=== PATIENT | male | born 1995 | race Two or more races ===

== ENCOUNTER 2016-12-31 08:41 | Emergency (ER) | payer OTHER, BC ==
[2016-12-31 09:16] VITALS: BP 126/86
--- NOTE | 2016-12-31 09:46 | EDM.PDOC ---
ED HPI GENERAL MEDICAL PROBLEM - General Chief Complaint: ENT Problem Stated Complaint: RT EYE, Time Seen by Provider: 12/31/16 09:46 Source of Information: Reports: Patient, RN Notes Reviewed History Limitations: Reports: No Limitations - History of Present Illness INITIAL COMMENTS - FREE TEXT/NARRATIVE: Active from [place] complaining of right eye/irritation injury sustained yesterday while working. Patient is unsure whether dirt, sand or some debris was blown into the eye at some point during the day. The irritation increased until the end of the day he noticed that the right eye looked red. This morning he awoke with yellow matting of the right eye and continued irritation. Denies any visual changes. Denies any other injury or symptoms. Tetanus is up-to-date. Onset Date: 12/30/16 Quality: Reports: Ache Severity: Moderate Improves with: Reports: None Worsens with: Reports: None Associated Symptoms: Reports: No Other Symptoms - Related Data Allergies Allergy/AdvReac Type Severity Reaction Status Date / Time ceftriaxone [From Rocephin] Allergy Hives Verified 12/31/16 09:19 Home Meds: Home Meds . [No Known Home Meds] 05/01/14 [History] Past Medical History - Past Surgical History HEENT Surgical History: Reports: Tonsillectomy Social & Family History - Family History Family Medical History: Noncontributory - Tobacco Use Smoking Status *Q: Never Smoker Second Hand Smoke Exposure: No - Caffeine Use Caffeine Use: Reports: Coffee, Soda - Alcohol Use Days Per Week of Alcohol Use: 0 - Recreational Drug Use Recreational Drug Use: No ED ROS ENT - Review of Systems Review Of Systems: ROS reveals no pertinent complaints other than HPI. ED EXAM, ENT - Physical Exam Exam: See Below Exam Limited By: No Limitations General Appearance: Alert, WD/WN, No Apparent Distress Eye Exam: Bilateral Eye: Other (right conjunctival injection with yellow matting. Fluorescein dye uptake and small area of medial and lateral sclera. Small right corneal abrasion at 9 o'clock position. ) Ears: Normal External Exam Nose: Normal Inspection Mouth/Throat: Normal Inspection Head: Atraumatic, Normocephalic Neck: Normal Inspection, Supple, Non-Tender, Full Range of Motion Respiratory/Chest: No Respiratory Distress Neurological: Alert, Oriented, CN II-XII Intact, Normal Cognition, Normal Gait, Normal Reflexes, No Motor/Sensory Deficits Psychiatric: Normal Affect, Normal Mood Skin: Warm, Dry, Intact, Normal Color, No Rash ED EYE PROCEDURE - Eye Procedure Alcaine Drops Administered: Yes Eye FB Removal: removal w/ cotton swab (3 tiny grains of sand/dirt removed from Rt inferior conjucntiva) Antibiotic Oinment/Drps Admin: right eye Course - Vital Signs Last Recorded V/S: Last Vital Signs Temp 37.2 C 12/31/16 09:15 Pulse 79 12/31/16 09:15 Resp 16 12/31/16 09:15 BP 126/86 12/31/16 09:15 Pulse Ox 100 12/31/16 09:15 - Orders/Labs/Meds Meds: Medications Discontinued Medications Generic Name Dose Route Start Last Admin Trade Name Elvis PRN Reason Stop Dose Admin Fluorescein Sodium 1 mg 12/31/16 10:05 12/31/16 10:10 Ful-Leila EYERT 12/31/16 10:06 1 mg ONETIME ONE Administration Gentamicin Sulfate 1 ml 12/31/16 10:05 12/31/16 10:09 Garamycin 0.3% Ophth Soln EYERT 12/31/16 10:06 1 ml ONETIME ONE Administration Tetracaine HCl 1 ml 12/31/16 10:03 12/31/16 10:09 Tetracaine 0.5% Steri-Unit Abril EYERT 12/31/16 10:04 1 ml ONETIME ONE Administration Departure - Departure Time of Disposition: 10:21 Disposition: Home, Self-Care 01 Condition: good Clinical Impression: Work related injury Corneal abrasion Qualifiers: Encounter type: initial encounter Laterality: right Qualified Code(s): S05.01XA - Injury of conjunctiva and corneal abrasion without foreign body, right eye, initial encounter Conjunctivitis Qualifiers: Conjunctivitis type: acute Acute conjunctivitis type: bacterial Laterality: right Qualified Code(s): H10.31 - Unspecified acute conjunctivitis, right eye - Discharge Information Instructions: Corneal Abrasion, [id number], Bacterial Conjunctivitis, Easy-to -Read Forms: ED Department Discharge Additional Instructions: Gentamicin eye drop, one drop into right eye 4 times a day for 5 days. Wear protective eye wear while working. Avoid rubbing or touching the right eye. Follow up in clinic with your primary doctor or the local eye doctor in 2 to 3 days for recheck.
[2016-12-31] MEDS ORDERED: Tetracaine HCl/PF 0.5% 4 ML Bottle EYERT ONE (10:03)
[2016-12-31] MEDS ORDERED: Fluorescein 1 MG Ophth Strip EYERT ONE (10:05)
[2016-12-31] MEDS ORDERED: Gentamicin 0.3% Ophth Soln 5 ML Bottle EYERT ONE (10:05)
== END 2016-12-31 10:48 | disposition home or self-care (01) ==
LOC: DL.ED 08:41
DX: T15.01XA Foreign body in cornea, right eye, initial encounter (principal); H10.31 Unspecified acute conjunctivitis, right eye; Z88.8 Allergy status to other drugs, medicaments and biological substances; Z98.890 Other specified postprocedural states; Y99.0 Civilian activity done for income or pay
CPT/HCPCS: 65205; 99283; A9270